=== PATIENT | female | born 1950 | race Caucasian/White ===

== ENCOUNTER 2017-11-17 05:30 | Inpatient (IN) | payer OTHER, MEDICARE ==
[~2017-11-17] VITALS: Ht 167.6 cm; Wt 99.8 kg
[2017-11-17] VITALS (12 sets, daily range): BP systolic 114–142; BP diastolic 47–92
--- NOTE | ~2017-11-17 | O ---
[facility] [place] [address] OPERATIVE REPORT Name: CHAYA KIRK Room #: 150-2 [facility]..#: [id number] Admission: 11/17/17 Attend Phys: Uday Jesus MD Discharge: Date of : 48 Report #: [id number] THIS REPORT FOR: //name// CC: Uday Downey DATE OF SERVICE: 11/17/2017 SERVICE: Orthopedics. FACILITY: [facility]. SURGEON: Uday Jesus M.D. FORM BLOCK MAKER: Pastora Prajapati NP. INDICATION FOR FORM BLOCK MAKER: Extremity manipulation, retraction of increased adiposity tissue and suture manipulation for repair. PREOPERATIVE DIAGNOSES: 1. Left hip pain. 2. Left hip abductor tendon tear at the trochanteric insertion. POSTOPERATIVE DIAGNOSES: 1. Left hip pain. 2. Left hip abductor tendon tear at the trochanteric insertion. PROCEDURE: Open abductor tendon repair of left hip. COMPLICATIONS: None. DRAINS: None. SPECIMENS: None. ESTIMATED BLOOD LOSS: 25 mL. SURGICAL FINDINGS: 1. A 90% thickness tear encountered after a simple incision of the superficial 10% of the tendon fibers. 2. Repair with [place] Iconix double loaded suture anchor times 2 with Peapack stitches times 4 and lateral row type distal anchor with ReelX anchor times 2. 3. Postoperative plan: 30 pounds weightbearing to left lower extremity for 6 weeks with no active abduction for 6 weeks. She will wear the abduction brace when she is out of bed. [facility] [address] [place] [address] OPERATIVE REPORT Name: CHAYA KIRK Room #: 150-2 [facility].#: [id number] Admission: 11/17/17 Attend Phys: Uday Jesus MD Discharge: Date of : 48 Report #: [id number] ANESTHESIA: General. HISTORY: The patient is a 67-year-old female with a history of progressive persistent left lateral hip pain that had failed all conservative measures. She had explored rest, activity modification, physical therapy, corticosteroid injections, oral medications, home exercises and walking with an assistive device, but still had lifestyle limiting pain. She therefore wished to have definitive treatment after an MRI showed the above pathology. Risks, benefits, alternatives and indication of surgery discussed with her in detail. Risks include but not limited to pain, bleeding, infection, persistent pain despite surgical measures, need for further surgery including revision, persistent pain, development of arthritis as well as complications related to anesthesia such as stroke, heart attack, pulmonary complications, thromboembolic disease and . Despite these risks, she wished to proceed. PROCEDURE IN DETAIL: After left lower extremity was correctly identified as the operative extremity in the preoperative holding area, the patient was taken to the operating room where general anesthesia was induced without complication. She was turned into lateral decubitus position with the left side up, right side down. She was padded appropriately. Prophylactic antibiotics were administered at appropriate time. Left leg was prepped and draped in standard sterile fashion. Time-out procedure was performed. The trochanter was palpated and then a 4-1/2 inch longitudinal incision was made centered over the trochanter. Dissection was taken down through her adiposity and then down to the IT band, which was exposed and then incised longitudinally allowing access to the trochanter and the abductor. On initial inspection, the abductor appeared normal, but the 10 blade was used to incise the tendon insertion on the trochanter from proximal to distal superficially through just a few fibers of the tendon and then this allowed visualization through the window in the superficial tendon and we could visualize a full thickness tear of the tendon more anteriorly, although the most anterior fibers and most posterior fibers remained attached. A Falk elevator and a rongeur were used to abrade the trochanter to generate a bleeding surface. The rongeur was also used to debride the fibrotic tendon distally to a fresh bleeding surface and then the first [place] Iconix anchor was placed anteriorly, the second one posteriorly on the proximal aspect of the trochanter with excellent purchase. Each of these anchors had two suture tapes and one limb of each tape was run proximally and then distally with a locking Peapack-type suture passed full thickness and back upon itself prior to locking. This allowed the other limb to be used as a shuttling suture to pull it tight. After all four Peapack stitches had been applied, the sutures were tied providing good advancement of the tendon back to the tuberosity. There was still some tendon distally that was lifted after the sutures were placed and so I felt that a double row was most appropriate and then crossing the anterior and posterior limbs. Two ReelX anchors were placed in a typical fashion with excellent tension dialed in providing good compression [address] [address] OPERATIVE REPORT Name: CHAYA KIRK [place] Room #: 150-2 [facility] M.R.#: [id number] Admission: 11/17/17 Attend Phys: Uday Jesus MD Discharge: Date of : 48 Report #: [id number] across the abductor tendon. The top layer was then repaired with an additional suture and then the wound was copiously irrigated. A secure repair was achieved with anatomic orthodoxy of the footprint. The IT band was closed with an 0 Vicryl suture in [id number] fashion. The wound was again irrigated. The fat layer was closed with two layers of 2-0 Vicryl followed by subdermal 2-0 Monocryl and then a running subcuticular 3-0 Monocryl. Dermabond was then applied. Sterile dressings applied. The patient was awakened from anesthesia and taken to recovery room in stable condition. There were no complications and all counts were recorded as correct. <ELECTRONICALLY SIGNED> By: Uday Jesus MD 11/17/17 1122 [id number] [id number] Uday Jesus MD /nt
--- NOTE | ~2017-11-17 | EKG ---
[address] [place] [address] ELECTROCARDIOGRAM REPORT Name: CHAYA KIRK Room #: 150-2 [facility]#: [id number] Admission: 11/17/17 Attend Phys: Uday Jesus MD Discharge: Date of : 48 Report #: [id number] THIS REPORT FOR: //name// [facility] Test Date: 2017-11-17 Test Time: 06:44:25 Pat Name: CHAYA KIRK Department: Room: [facility] 2 Gender: F Proced Tech: AMAIRANI : 1950 Requested By: Uday Jesus Order Number: [id number] MD: Mao Lagunas Measurements Intervals [place] Rate: 63 P: 13 [place]: 173 QRS: -50 QRSD: 95 T: 15 QT: 417 QTc: 427 Interpretive Statements Sinus rhythm Left anterior fascicular block Borderline low voltage, extremity leads Abnormal R-wave progression, late transition Compared to ECG 10/31/2013 08:54:59 Sinus bradycardia no longer present Electronically Signed On 11-17-2017 9:04:37 CDT by Mao Lagunas [email or web address] <ELECTRONICALLY SIGNED> By: Mao Lagunas MD, [facility] 11/17/17 0904 0644 [id number] Mao Lagunas MD, [facility] /EPI
[~2017-11-17 05:30] MED LIST: ACCUNEB SO1.25 MG/1; ASPIRIN EC81 M1 PO; B12INJ IM; CIPROFLOXACIN500 M1 PO; CO Q-10100 M1 PO; COSAMIN DS CAP1 EAC1 PO; CRANBERRY200 MG PO; CRANBERRY500 M1 PO; DILAUDID2 MG PO; ECOTRIN325 MG PO; HYALURONIC ACI1 EACH PO; IBUPROFEN 400400 M2 PO; KRILL OIL 1,001 EAC1 PO; MYRBETRIQ25 MG; NABUMETONE 500500 M1; NORCO 10-325 T1 EACH PO; NORCO 5-325 TA1 EACH PO; NOXIFOL-D32500 UNIT PO; PERCOCET 5-3251 EACH PO; PYRIDIUM200 MG PO; STOOL SOFTENER100 MG PO; VITAMIN B-12 IM; VITAMIN B-1250 MC3 IM; ZANTAC 150MG T150 MG PO; ZOFRAN ODT4 MG PO; [UNRECOGNIZED DRUG - OTHER] PO
[2017-11-18 04:43] VITALS: BP 119/62
[2017-11-18 09:15] VITALS: BP 117/64
[2017-11-18 10:41] VITALS: BP 117/64
== END 2017-11-18 15:30 | disposition home health service (06) | DRG 502 ==
LOC: OR 05:30 → TBA 05:30 → OR 10:25 → 4W 11:45 → ENTRNSPT 11-18 15:19 → EDTRNSPTSTS 11-18 15:20 → 4W 11-18 15:30
PROC: 0LQK0ZZ Repair Left Hip Tendon, Open Approach (ICD-10-PCS; principal; 2017-11-17)
DX: S76.212A Strain of adductor muscle, fascia and tendon of left thigh, initial encounter (principal); X58.XXXA Exposure to other specified factors, initial encounter; M70.62 Trochanteric bursitis, left hip; M53.3 Sacrococcygeal disorders, not elsewhere classified; M17.11 Unilateral primary osteoarthritis, right knee; M51.36 Other intervertebral disc degeneration, lumbar region; Y93.89 Activity, other specified; Y92.89 Other specified places as the place of occurrence of the external cause; Y99.8 Other external cause status; Z79.899 Other long term (current) drug therapy
CPT/HCPCS: 10047; 50010; 50101; 50382; 50414; 50939; 54118; 55430; 56527; 56528; 57103; 62110; 62900; 70005

== ENCOUNTER → 2020-10-15 | Outpatient (CLI) | payer OTHER ==
[~2020-10-15] MED LIST changes: +IBUPROFEN 400400 M1 PO; +MELATONIN5 MG PO; +VITAMIN B-121000 MC4 IM
[2020-10-15 14:05] LABS: HEMATOCRIT 41.8 % (37.0-47.0); HEMOGLOBIN 13.8 gm/dL (12.0-15.0); MCH 29.9 pg (26.0-34.0); MCHC 32.9 g/dL (28.0-37.0); MCV 90.9 fL (80.0-100.0); RBC 4.6 mil/uL (4.20-5.00); RDW 13.9 % (10.5-14.5); WBC 7.3 thou/uL (4.0-11.0)
[2020-10-15 14:06] LABS: URINE BILIRUBIN NEGATIVE (Negative); URINE BLOOD NEGATIVE (Negative); URINE CLARITY CLEAR; URINE COLOR YELLOW; URINE GLUCOSE-RANDOM* NEGATIVE (Negative); URINE KETONES NEGATIVE (Negative); URINE LEUKOCYTES-REFLEX TRACE (Negative); URINE NITRITE-REFLEX NEGATIVE (Negative); URINE PROTEIN (DIPSTICK) NEGATIVE (Negative); URINE SPECIFIC GRAVITY 1.025 (1.005-1.035); URINE UROBILINOGEN 0.2 E.U./dl (0.2-1.0)
[2020-10-15 14:20] LABS: ALBUMIN 3.9 g/dL (3.4-5.0); CALCIUM 8.9 mg/dL (8.5-10.1); CREATININE 0.8 mg/dL (0.6-1.0); POTASSIUM 4.4 mmol/L (3.5-5.1)
[2020-10-15 14:22] LABS: INR 0.92; PROTIME 10.1 Seconds (10.5-12.1)
--- NOTE | 2020-10-15 15:31 | EKG ---
[facility] [place] [address] ELECTROCARDIOGRAM REPORT Name: CHAYA KIRK Room #: [facility]#: [id number] Admission: 10/15/20 Attend Phys: Amol Garcia MD Discharge: Date of : 48 Report #: [id number] [facility] Test Date: 2020-10-15 Test Time: 13:20:10 Pat Name: CHAYA KIRK Department: Room: Gender: F Loom Starter: NIKUNJ : 1950 Requested By: Amol Garcia Order Number: [id number] MD: Cricket Leone Measurements Intervals [place] Rate: 62 P: -12 [place]: 179 QRS: -58 QRSD: 97 T: 25 QT: 408 QTc: 415 Interpretive Statements Sinus rhythm Left anterior fascicular block Borderline low voltage, extremity leads Abnormal R-wave progression, late transition Compared to ECG 11/17/2017 06:44:25 No significant changes Electronically Signed On 10-15-2020 15:31:21 CDT by Cricket Leone [email or web address] <ELECTRONICALLY SIGNED> By: Cricket Leone MD, [facility] 10/15/20 1531 1320 1320 Crikcet Leone MD, FAC /EPI
== END ==
LOC: PAC 11:53
PROVIDERS: ATTEND Orthopaedic Surgery
DX: Z01.812 Encounter for preprocedural laboratory examination (principal); I44.4 Left anterior fascicular block